=== PATIENT | male | born 1955 | race Caucasian/White ===

== ENCOUNTER 2020-04-17 15:05 | Inpatient (IN) | payer OTHER ==
[~2020-04-17] VITALS: Ht 185.4 cm; Wt 112.7 kg
[2020-04-17 16:47] VITALS: BP 131/85
--- NOTE | 2020-04-17 16:55 | NUR ---
ASSUMED CARE OF PT APPROX 1645, PT IS A&0X4, AMB STEADY. HR IN 40S, SPEAKS OF CP AFTER EATING/DRINKING. PT SPEAKING WITH PHYSICIAN. STARTING ON ADMISSION AND MONITORING. SPOUSE ACCOMPANIED, WANTS TO STAY SINCE THEY LIVE SO FAR AWAY. WILL ASK DOCTOR IF HOSPITAL CAN MAKE AN EXCEPTION. GAVE PT DEMO OF CALL LIGHT AND TO CALL FOR ANY NEEDS. WANTS A SNACK. WILL AWAIT ORDERS. SEE SEPARATE INTERVENTIONS FOR ASSESSMENTS. PT ALSO HAS LARGE HIATAL HERNIA AND TAKES GI MEDICATION. NO CHEST PAIN AT THIS TIME
[2020-04-17 18:00] LABS: HEMATOCRIT 48.8 % (42.0-52.0); HEMOGLOBIN 17.1 gm/dL (14.0-18.0); MCH 30.7 pg (26.0-34.0); MCV 87.6 fL (80.0-100.0); RBC 5.58 mil/uL (4.50-6.00); RDW 13.2 % (10.5-14.5); WBC 9.8 thou/uL (4.0-11.0)
[2020-04-17 18:18] LABS: ALBUMIN 3.8 g/dL (3.4-5.0); CALCIUM 8.8 mg/dL (8.5-10.1); MAGNESIUM 1.8 mg/dL (1.8-2.4); PHOSPHORUS 3.3 mg/dL (2.5-4.9); POTASSIUM 4.3 mmol/L (3.5-5.1); TOTAL PROTEIN 7.2 g/dL (6.4-8.2)
[2020-04-17 18:23] LABS: TROPONIN-I 1.52 ng/mL (<0.06)
[2020-04-17 18:40] LABS: TSH 2.493 uIU/mL (0.358-3.740)
[2020-04-17] MEDS ORDERED: COZAAR 25 MG TA25 M1 PO (19:28)
[2020-04-17] MEDS ORDERED: OMEPRAZOLE40 MG PO (19:29)
--- NOTE | 2020-04-17 19:31 | NUR ---
PT TAKES ONE MORE MEDICATION; SPOUSE LOOKING IT UP AND WILL TELL WHICHEVER NURSE IS ON DUTY.
[2020-04-17 19:50] VITALS: BP 125/69
[2020-04-17 20:29] LABS: INR 1.1; PROTIME 10.8 Seconds (9.3-11.4)
[2020-04-18] VITALS: BP 124/68
[2020-04-18 04:10] LABS: HEMATOCRIT 46.7 % (42.0-52.0); HEMOGLOBIN 15.7 gm/dL (14.0-18.0); MCH 29.7 pg (26.0-34.0); MCHC 33.6 g/dL (28.0-37.0); MCV 88.4 fL (80.0-100.0); RBC 5.28 mil/uL (4.50-6.00); RDW 13.5 % (10.5-14.5); WBC 8.4 thou/uL (4.0-11.0)
[2020-04-18 04:13] LABS: CALCIUM 8.1 mg/dL (8.5-10.1); MAGNESIUM 1.9 mg/dL (1.8-2.4)
[2020-04-18 04:17] LABS: CHOLESTEROL 184 mg/dL (<200); HDL CHOLESTEROL 37 mg/dL (>40); LDL CHOLESTEROL 112 mg/dL (<100); TRIGLYCERIDE 176 mg/dL (<150); VLDL 35 mg/dL (<40)
[2020-04-18 04:26] LABS: SERUM ASSESSMENT Clear
[2020-04-18 04:30] VITALS: BP 132/65
[2020-04-18 07:35] VITALS: BP 134/83
--- NOTE | 2020-04-18 07:53 | NUR ---
ASSUE CARE 1900. PT/VITALS STABLE. MILD INTERMITTENT CHEST PAIN. STEADY GAIT. NO DISTRESS NTOED. SR/SB ON MONITOR. HEPARIN BOLUS AND DRIP INTIATED PER CARDIOLOGY PROTOCOL. ASSESSMETN CHARTED. PROGRESSING WELL WITH POC. CARDIOLOGY TO SEE PT TODAY FOR FURTHER POC. WILL CONTINUE TO MONITOR AND FOLLOW WITH POC
[2020-04-18 11:11] VITALS: BP 108/73
[2020-04-18 15:20] VITALS: BP 134/67
--- NOTE | 2020-04-18 18:41 | NUR ---
ASSUMED CARE OF PT SHIFT CHANGE. ASSESSMENTS CHARTED. MEDS GIVEN PER OCT. PT A&OX4, NO C/O CHEST PAIN OR DISTRESS. PLAN FOR CATH IN THE MORNING. NPO AFTER MIDNIGHT. WILL CONTINUE TO MONITOR AND FOLLOW POC.
[2020-04-18 20:45] VITALS: BP 118/66
[2020-04-19] VITALS (11 sets, daily range): BP systolic 121–164; BP diastolic 66–92
[2020-04-19 03:55] LABS: CALCIUM 8.1 mg/dL (8.5-10.1); MAGNESIUM 1.9 mg/dL (1.8-2.4)
[2020-04-19 06:07] LABS: HEMATOCRIT 44.5 % (42.0-52.0); HEMOGLOBIN 15.4 gm/dL (14.0-18.0); MCH 30.5 pg (26.0-34.0); MCHC 34.5 g/dL (28.0-37.0); MCV 88.5 fL (80.0-100.0); RBC 5.03 mil/uL (4.50-6.00); RDW 13.3 % (10.5-14.5); WBC 7.3 thou/uL (4.0-11.0)
--- NOTE | 2020-04-19 07:58 | NUR ---
NPO SINCE MIDNIGHT FOR A POSSIBLE CATH TODAY.ON HEPARIN GTT;TITRATED.DENIES PAIN AND SOB.POC CONTINUED.
--- NOTE | 2020-04-19 08:53 | EKG ---
[facility] [place] [address] [address] ELECTROCARDIOGRAM REPORT Name: MARITZA ALLAN Room #: 212- ADM IN M.R.#: [id number] Admission: 04/17/20 Attend Phys: Danis Rush MD Discharge: Date of : 59 Report #: [id number] THIS REPORT FOR: cc: FAM - Family physician unknown FAM - Family physician unknown Mitch Cunha MD [facility] THIS REPORT FOR: //name// [facility] Test Date: 2020-04-17 Test Time: 21:30:50 Pat Name: MARITZA ALLAN Department: Room: 212 Gender: M Director Of Media: MARBELLA : 1955 Requested By: Danis Rush Order Number: [id number] MD: Mitch Cunha Measurements Intervals [place] Rate: 51 P: -28 WY: 145 QRS: -12 QRSD: 89 T: 25 QT: 435 QTc: 401 Interpretive Statements Sinus bradycardia Otherwise normal tracing No previous ECG available for comparison Electronically Signed On 04-19-2020 8:53:11 CDT by Mitch Cunha [email or web address] <ELECTRONICALLY SIGNED> By: Mitch Cunha MD, FAC 04/19/20 0853 29 29 Mitch Cunha MD, [facility] /EPI
--- NOTE | 2020-04-19 11:33 | 2DMMODE ---
[facility] [address] [place] [address] 2 D/M-MODE ECHOCARDIOGRAM Name: MARITZA ALLAN Room #: 212-P ADM IN M.R.#: [id number] Admission: 04/17/20 Attend Phys: Danis Rush MD Discharge: Date of : 59 Report #: [id number] THIS REPORT FOR: cc: FAM - Family physician unknown FAM - Family physician unknown Pradeep Sun MD ~ APPROVED REPORT Study performed: 04/19/2020 09:40:36 EXAM: Comprehensive 2D, Doppler, and color-flow Echocardiogram Patient Location: Bedside Room #: 212 Status: routine BSA: 2.34 HR: 53 bpm BP: 154/90 mmHg Rhythm: Bradycardia Other Information Study Quality: Good Indications Diabetes Non STEMI Elevated Troponin Chest Pain Hypertension/HDD 2D Dimensions RVDd: 40.27 mm IVSd: 11.72 (7-11mm) LVOT Diam: 21.39 (18-24mm) LVDd: 47.80 mm PWd: 12.66 (7-11mm) Ascending Ao: 29.76 (22-36mm) LVDs: 37.18 (25-40mm) Aortic Root: 30.85 mm IVC: 13.00 mm Volumes Left Atrial Volume (Systole) Single Plane 4CH: 47.38 mL LA ESV Index: 23.00 mL/m2 Aortic Valve AoV Peak Dell.: 1.41 m/s [facility] [email or web address] [address] 2 D/M-MODE ECHOCARDIOGRAM Name: MARITZA ALLAN Room #: 212-P [facility] IN ..#: [id number] Admission: 04/17/20 Attend Phys: Danis Rush, Discharge: Date of : 59 Report #: [id number] Peak Gr.: 7.95 mmHg LVOT Max P.77 mmHg LVOT Max V: 0.97 m/s HENRI Vmax: 2.47 cm2 Mitral Valve E/A Ratio: 1.2 MV Decel. Time: 185.66 ms MV E Max Dell.: 0.95 m/s MV A Dell.: 0.82 m/s MV PHT: 53.84 ms IVRT: 96.89 ms Pulmonary Valve PV Peak Dell.: 0.93 m/s PV Peak Gr.: 3.44 mmHg Pulmonary Vein P Vein S: 0.55 m/s P Vein A: 0.23 m/s P Vein D: 0.32 m/s P Vein A Dur.: 106.1 msec P Vein S/D Ratio: 1.72 Tricuspid Valve TR Peak Dell.: 2.50 m/s TR Peak Gr.: 25.03 mmHg PA Pressure: 30.00 mmHg Left Ventricle The left ventricle is normal size. There is normal LV segmental wall motion. There is normal left ventricular wall thickness. The left ventricular systolic function is normal. The left ventricular ejection fraction is within the normal range. LVEF is 50-55%. The left ventricular diastolic function is normal. Right Ventricle The right ventricle is normal size. The right ventricular systolic function is normal. Atria The left atrium size is normal. The right atrium size is normal. Aortic Valve The aortic valve is normal in structure. No aortic regurgitation is present. There is no aortic valvular stenosis. Mitral Valve The mitral valve is normal in structure. Trace to mild mitral [facility] [email or web address] [address] 2 D/M-MODE ECHOCARDIOGRAM Name: ALLANMARITZA Zunilda Room #: 212-P [facility] IN ..#: [id number] Admission: 04/17/20 Attend Phys: Danis Rush, Discharge: Date of : 59 Report #: [id number] regurgitation. No evidence of mitral valve stenosis. Tricuspid Valve The tricuspid valve is normal in structure. There is trace to mild tricuspid regurgitation. Estimated PAP 30 mmHg. There is mild pulmonary hypertension. Pulmonic Valve The pulmonary valve is normal in structure. Trace pulmonic regurgitation. Great Vessels The aortic root is normal in size. IVC is normal in size and collapses >50% with inspiration. Pericardium There is no pericardial effusion. <Conclusion> The left ventricle is normal size. LVEF is 50-55%. The aortic valve is normal in structure. The mitral valve is normal in structure. Trace to mild mitral regurgitation. The tricuspid valve is normal in structure. There is trace to mild tricuspid regurgitation. Estimated PAP 30 mmHg. There is mild pulmonary hypertension. The pulmonary valve is normal in structure. Trace pulmonic regurgitation. There is no pericardial effusion. <ELECTRONICALLY SIGNED> By: Pradeep Sun MD 04/19/20 1133 1133 1133 Pradeep Sun MD /INF
--- NOTE | 2020-04-19 13:07 | NUR ---
MET WITH PT AND SPOUSE THIS AM AND INFORMED [employer] CONNECT PLAN IS OON WITH NO OON BENEFITS. PROVIDED IN [facility], [facility]. INFORMED PT AND SPOUSE WORKING WITH PT'S INSURANCE TO SEE IF [employer] WILL APPROVE DAYS 04/17/20 THRU 04/19/20. OBTAINED SPOUSE'S CELL NUMBER FOR FOLLOW UP. 2N GEOMORPHOLOGY TEACHER AND CM DIRECTOR UPDATED.
[2020-04-19 14:38] LABS: BASOPHILS 0.6 % (0.0-2.0); EOSINOPHILS 1.7 % (0.0-3.0); HEMATOCRIT 45.8 % (42.0-52.0); HEMOGLOBIN 15.3 gm/dL (14.0-18.0); LYMPHOCYTES 21.6 % (24.0-44.0); MCH 29.6 pg (26.0-34.0); MCHC 33.3 g/dL (28.0-37.0); MCV 88.7 fL (80.0-100.0); MONOCYTES 3.2 % (1.0-8.0); PLATELET COUNT 233 thou/uL (150-400); POLYS 72.9 % (36.0-66.0); RBC 5.16 mil/uL (4.50-6.00); RDW 13.3 % (10.5-14.5); WBC 6.9 thou/uL (4.0-11.0)
[2020-04-19 14:48] LABS: CALCIUM 8.2 mg/dL (8.5-10.1); CREATININE 1.1 mg/dL (0.7-1.3); POTASSIUM 3.6 mmol/L (3.5-5.1)
[2020-04-19 14:52] LABS: INR 1.1; PROTIME 10.8 Seconds (9.3-11.4)
[2020-04-19 14:53] LABS: APTT 28.7 Seconds (24.5-32.8)
[2020-04-19 14:55] LABS: ALBUMIN 3.2 g/dL (3.4-5.0); TOTAL BILIRUBIN 0.3 mg/dL (0.2-1.0); TOTAL PROTEIN 6.3 g/dL (6.4-8.2)
--- NOTE | 2020-04-19 19:25 | NUR ---
ASSUMED CARE PT SHIFT CHANGE. ASSESSMENTS CHARTED. MEDS GIVEN PER OCT. PT A&OX4, NO C/O PAIN OR DISTRESS. CATH PROCEDURE COMPLETE WITH NO INTERVENTIONS. CABG SCHEDULE FOR SUNDAY. R GROIN SITE CDI, WITH NO BRUISING OR HEMATOMA. HEPARIN DRIP CONTINUES AT 13.32. WILL CONTINUE TO MONITOR AND FOLLOW POC.
[2020-04-19 23:03] LABS: URINE BILIRUBIN NEGATIVE (Negative); URINE BLOOD NEGATIVE (Negative); URINE CLARITY CLEAR; URINE COLOR YELLOW; URINE GLUCOSE-RANDOM* NEGATIVE (Negative); URINE KETONES NEGATIVE (Negative); URINE LEUKOCYTES-REFLEX NEGATIVE (Negative); URINE NITRITE-REFLEX NEGATIVE (Negative); URINE PROTEIN (DIPSTICK) NEGATIVE (Negative); URINE SPECIFIC GRAVITY 1.015 (1.005-1.035); URINE UROBILINOGEN 0.2 E.U./dl (0.2-1.0)
[2020-04-20 04:45] VITALS: BP 140/80
[2020-04-20 05:39] LABS: HEMATOCRIT 43.7 % (42.0-52.0); HEMOGLOBIN 14.5 gm/dL (14.0-18.0); MCH 29.4 pg (26.0-34.0); MCHC 33.2 g/dL (28.0-37.0); MCV 88.4 fL (80.0-100.0); RBC 4.94 mil/uL (4.50-6.00); RDW 13.1 % (10.5-14.5); WBC 7.8 thou/uL (4.0-11.0)
[2020-04-20 06:12] LABS: CALCIUM 8.4 mg/dL (8.5-10.1); CREATININE 0.9 mg/dL (0.7-1.3); MAGNESIUM 1.8 mg/dL (1.8-2.4)
--- NOTE | 2020-04-20 06:29 | NUR ---
ON HEPARIN GTT TITRATED PER PROTOCOL.UP ADLIB TO THE BATHROOM.DENIES NEEDS AT THIS TIME.POC CONTINUED.
[2020-04-20 07:09] LABS: GLYCOHEMOGLOBIN (HGB A1C) 5.4 % (4.8-5.6)
[2020-04-20 08:00] VITALS: BP 152/89
--- NOTE | 2020-04-20 08:28 | EKG ---
[facility] [place] [address] [place] [address] ELECTROCARDIOGRAM REPORT Name: MARITZA ALLAN Room #: 212-P ADM IN M.R.#: [id number] Admission: 04/17/20 Attend Phys: Danis Rush MD Discharge: Date of : 59 Report #: [id number] THIS REPORT FOR: cc: FAM - Family physician unknown FAM - Family physician unknown Mitch Cunha MD [facility] THIS REPORT FOR: //name// [facility] Test Date: 2020-04-20 Test Time: 07:18:14 Pat Name: MARITZA ALLAN Department: Room: 212 Gender: M Return Agent Airport: [place] : 1955 Requested By: Nayan Wise Order Number: [id number] MD: Mitch Cunha Measurements Intervals [place] Rate: 56 P: 37 ME: 171 QRS: -14 QRSD: 91 T: 14 QT: 425 QTc: 411 Interpretive Statements Sinus bradycardia Otherwise no significant abnormality Compared to ECG 04/17/2020 21:30:50 No significant change was found Electronically Signed On 04-20-2020 8:28:13 CDT by Mitch Cunha [email or web address] <ELECTRONICALLY SIGNED> By: Mitch Cunha MD, [facility] 04/20/20 0828 7 7 Mitch Cunha MD, [facility] /EPI
--- NOTE | 2020-04-20 12:23 | NUR ---
Spoke with patient discussed [facility], [facility], and [facility] network[facility], [facility] is reviewing, [facility] has no CTS.
[2020-04-20 17:00] VITALS: BP 128/76
[2020-04-20 17:56] VITALS: BP 152/89
--- NOTE | 2020-04-20 19:21 | NUR ---
ASSUMED CARE OF PT AT SHIFT CHANGE. ASSESSMENTS CHARTED. MEDS GIVEN PER OCT. PT A&OX4, NO C/O PAIN. HEPARIN DRIP CONTINUES AT 11. PT IS IN THERAPEUTIC RANGE. CABG STILL PLANNED FOR SUNDAY. WILL CONTINUE TO MONITOR AND FOLLOW POC.
[2020-04-20 20:03] VITALS: BP 126/75
--- NOTE | 2020-04-21 03:35 | NUR ---
PATIENT IS ADVANCING SLOWLY IN HIS CARE PLAN. VITAL SIGNS STABLE WITH PATIENT HAVING NO COMPLAINTS OF CHEST PAIN OR NAUSEA. FULLY ORIENTED, PATIENT IS ABLE TO CALL APPROPRIATELY FOR NEEDS AND PARTICIPATE IN CARE. HEPARIN GTT PER PROTOCOL. UP AD CINDI THROUGHOUT SHIFT INCIDENT FREE. PATIENT IS STRONG AND BALANCED WHEN AMBULATING. PATIENT HAS A GREAT DEAL OF ANXIETY CONCERNING QUESTIONS AND UNCERTAINTY ABOUT UPCOMING CARDIAC PROCEDURE. HE HAS STATED THAT HE WOULD "FEEL BETTER" JUST KNOWING IT WAS GOING TO BE DEFINITIVELY DONE AND WHERE IT WOULD HAPPEN. CONTINUE PLAN OF CARE.
[2020-04-21 04:01] VITALS: BP 108/60
[2020-04-21 05:43] LABS: HEMATOCRIT 43.9 % (42.0-52.0); HEMOGLOBIN 14.9 gm/dL (14.0-18.0); MCH 30.2 pg (26.0-34.0); MCHC 33.9 g/dL (28.0-37.0); RBC 4.93 mil/uL (4.50-6.00); RDW 13.3 % (10.5-14.5); WBC 7.2 thou/uL (4.0-11.0)
[2020-04-21 05:54] LABS: CALCIUM 8.6 mg/dL (8.5-10.1); CREATININE 0.8 mg/dL (0.7-1.3); MAGNESIUM 1.7 mg/dL (1.8-2.4); POTASSIUM 4.1 mmol/L (3.5-5.1)
[2020-04-21 08:29] VITALS: BP 137/77
[2020-04-21 11:07] VITALS: BP 118/71
[2020-04-21 11:11] VITALS: BP 95/64
--- NOTE | 2020-04-21 12:00 | NUR ---
ORDERS RECEIVED FOR PT EVAL AND TREAT. Pt LIVES WITH IN BRAND NEW RV THAT IS CURRENTLY PARKED IN FRONT OF THEIR HOME WHICH IS BEING RENOVATED. HAS 3 WIDE ANNA RV WITH UNILAT HR. INDEP WITH ADLs. NO GAIT AIDS. Pt HAS BEEN UP AD CINDI WITHOUT DIFFICULTIES PER Pt AND RN. NO MOBILITY ISSUES AT THIS TIME. Pt DENIED CURRENT NEED FOR PT. ACUTE PT TO SIGN OFF. Pt POTENTIALLY STAYING HERE FOR CABG PROCEDURE AFTER WHICH WOULD NEED NEW ORDERS FOR PT.
[2020-04-21 15:39] VITALS: BP 127/87
[2020-04-21] MEDS ORDERED: ASPIRIN325 PO (17:13)
[2020-04-21] MEDS ORDERED: LIPITOR40 MG PO (17:13)
[2020-04-21] MEDS ORDERED: COZAAR 50 MG TA50 M1 PO (17:13)
--- NOTE | 2020-04-21 17:34 | NUR ---
Began process again for transfer to in [facility]. [facility] at capacity. Sp with [facility] transfer center. [facility] where CTS avail. Transfer center requested casemgt inquire if patient agreeable to [facility] as may expedite process. Initially yes, however sp with family who reports bad experience and preference [facility]. Prev noted [facility] not CTS avail and today [facility] at capacity. calling insurance to inquire if able to have procedure here. Ins speaking with hospital UR. Question of non contracted benefit. During discussion bed aval at [facility]. Accepting phys Dr Aaron Herrera hospitalist. CTS phys Dr Wale Kaur. Patient made aware likely CTS sx Sunday. Emtalla completed and signed by patient. [facility] arranged for anytime but may be later this evening. at bedside. RN called report.
--- NOTE | 2020-04-21 18:16 | NUR ---
ASSUMED CARE OF PT AT SHIFT CHANGE. ASSESSMENTS CHARTED. MEDS GIVEN PER OCT. PT A&OX4, NO C/O PAIN DURING SHIFT. HEP DRIP CONTINUED THROUGHOUT SHIFT WITH NO CHANGE. PT TRANSFERRED TO [facility] FOR CABB. TRANSPORTED BY [facility] AT 1815.
[2020-04-21 18:20] VITALS: BP 127/87
--- NOTE | 2020-04-22 11:50 | CATHLAB ---
[facility] [address] [place] [address] INVASIVE PROCEDURE REPORT Name: MARITZA ALLAN Room #: 212-P [facility] IN M.R.#: [id number] Admission: 04/17/20 Attend Phys: Danis Rush MD Discharge: 04/21/20 Date of : 59 Report #: [id number] THIS REPORT FOR: cc: FAM - Family physician unknown FAM - Family physician unknown Pradeep Sun MD ~ APPROVED REPORT Study performed: 04/19/2020 11:24:29 Patient Details The patient is a 64 year-old male Event Personnel Pradeep Sun Composite Boat Builder, Jack Falcon RN RN, Nay Andino RN RN, Janny Jose RTR Scrub, Angelica Pienda Scrub, Cindi Delgadillo RT(R)() Monitor Procedures Performed Art Access - R femoral artery* Left Heart Cath w/or w/o Coronaries [id number] [facility] Hemostasis w/ Mynx 18539 Initial Mod Sed Same Phys/QHP Gr5y 149275, supervision of conscious sedation Indication Non-STEMI , Chest pain Procedure Narrative The Right Groin^ was infiltrated with 1% Lidocaine subcutaneous anesthesia. A PINNACLE 6FR Sheath #[id number] sheath was inserted into the RFA 6F^. Coronary angiography was performed using coronary diagnostic catheters. The right coronary system was accessed and visualized with a JR4 catheter. The left coronary system was accessed and visualized with a JL4 catheter. The left ventricle was accessed and visualized with a JR4 catheter. The patient tolerated the procedure well and there were no complications associated with the procedure. There was no hematoma. Intraoperative Conscious Sedation Versed mg Fluoro Time: 1.60 minutes Dose: DAP 5048.40 cGycm2 Contrast Type and Amount: Omnipaque 60 ml [facility] [place] [address] INVASIVE PROCEDURE REPORT Name: JERRELLMARITZA Zunilda Room #: 212-P [facility]#: [id number] Admission: 04/17/20 Attend Phys: Danis Rush, Discharge: 04/21/20 Date of : 59 Report #: [id number] Coronary Angiography The patient's coronary anatomy is right dominant. Diagnostic Cath Left Main Normal origin moderate to large caliber bifurcates left anterior descending left circumflex. Free of significant high-grade lesions LAD Moderate caliber type III vessel which courses in the anterior interventricular sulcus. His proximal mid portion there is a eccentric lesion that appears to be between 60 and 70% depending on the views. There is a poststenotic dilatation and a less significant narrowing beyond this dilatation. The vessel continues giving rise to septal and diagonal branches towards the apex terminates in the posterior inferior aspect of the left ventricle free of high-grade disease Diagonal 1 Moderate caliber bifurcating vessel has an eccentric proximal lesion of 70%. The vessel then continues bifurcates into smaller branches along the anterolateral aspect of the heart without significant high-grade lesions present Circumflex Moderate to large caliber vessel of normal origin courses giving rise to a small insignificant caliber first marginal branch. This first marginal branches without high-grade lesion. The vessel itself and continues on in the AV groove where there is a large marginal branch arising with a high-grade eccentric 90 to 95% lesion noted. There is evidence of some haziness consistent with mild thrombus. This vessel reconstitutes and terminates as a bifurcating lateral wall marginal with luminal irregularities in its course. The circumflex proper then continues as a small caliber vessel posteriorly. OM1 Moderate to large caliber vessel with high-grade proximal lesions of 99 5%. It then bifurcates with luminal irregularities in its bifurcating branch Right Coronary Small to moderate caliber vessel normal origin. Proximally there is a high-grade lesion with homocollaterals noted. This appears to be recannulated chronic total occlusion but flow is limited. The continues in the AV groove posteriorly to the crux of the heart rate gives rise to a small caliber posterior descending artery free of high-grade disease beyond this initial lesion. At the acute margin there is a small RV branch free of high-grade disease R PDA Small caliber vessel coursing in the posterior interventricular sulcus free of high-grade lesion Left Ventriculography Left Ventriculography was not performed. Hemodynamics [facility] [address] [place] [address] INVASIVE PROCEDURE REPORT Name: MARITZA ALLAN Room #: 212-P [facility] IN M.R.#: [id number] Admission: 04/17/20 Attend Phys: Danis Rush, Discharge: 04/21/20 Date of : 59 Report #: [id number] The aortic pressure is 147/73 mmHg with a mean of 103 mmHg. The left ventricular pressure is 167/8 mmHg with a mean of mmHg. The left ventricular end diastolic pressure is 32 mmHg. Conclusion 1. Coronary artery disease severe multivessel consisting of a high-grade complex proximal LAD, proximal first marginal branch lesion and a proximal RCA appearing as a recannulated chronic total occlusion 2. Abnormal hemodynamics with mildly elevated low ventricular end-diastolic pressure Recommendations Cardiac Risk Reduction Program CABG <ELECTRONICALLY SIGNED> By: Pradeep Sun MD 04/22/20 1150 1150 1150 Pradeep Sun MD /INF
--- NOTE | 2020-04-22 15:47 | HC ---
[facility] [place] [address] [address] [place] [address] CONSULTATION Name: MARITZA ALLAN Room #: 212-P [facility] IN M.R.#: [id number] Admission: 04/17/20 Attend Phys: Danis Rush MD Discharge: 04/21/20 Date of : 59 Report #: [id number] THIS REPORT FOR: cc: [facility] - Family physician unknown ADOLFO - Family physician unknown Houston Long MD ~ CC: [facility] unknown Danis Rush DATE OF SERVICE: 04/19/2020 REASON FOR CONSULT: The patient is a 64-year-old seen for Dr. Sun. The patient was admitted on 04/17/2020 with unstable angina. The patient had elevated troponin. The patient states that he had a crushing chest pain associated with diaphoresis. No shortness of breath. The patient had a mild episode of this Sunday night, but it became severe Sunday morning and led to hospitalization. Cardiac catheterization today demonstrates severe 3-vessel disease including subtotal right coronary artery occlusion, 90% circumflex marginal and 90% LAD stenosis. PAST MEDICAL HISTORY: Significant for hypertension. The patient denies diabetes mellitus. The patient takes omeprazole for gastroesophageal reflux. MEDICATIONS: Also includes losartan 25 mg daily. ALLERGIES: The patient denies drug allergies. SOCIAL HISTORY: The patient is a current smoker. FAMILY HISTORY: has coronary artery disease and has had bypass surgery. REVIEW OF SYSTEMS: GENERAL: No fever. The patient does report a 50-pound weight loss since May using [employer]. EYES: No vision change. HEENT: No headache. No sore throat. RESPIRATORY: No shortness of breath, no cough. CARDIAC: As mentioned, unstable angina at rest. No palpitations. GASTROINTESTINAL: Has had reflux symptoms, but this may have been angina. Denies nausea, vomiting, or diarrhea. GENITOURINARY: No urgency, frequency, or blood. MUSCULOSKELETAL: Has had a left meniscus problem, but no other bone or joint complaints. NEUROLOGIC: No motor or sensory dysfunction. [facility] [address] [place] [address] CONSULTATION Name: JERRELLMARITZA Zunilda Room #: 212-[facility] IN ..#: [id number] Admission: 04/17/20 Attend Phys: Danis Rush MD Discharge: 04/21/20 Date of : 59 Report #: [id number] SKIN: No rash or infection. ENDOCRINE: No goiter, no tremor. HEMATOLOGIC: No bruisability or bleeding. PHYSICAL EXAMINATION: CONSTITUTIONAL: The patient is in bed, status post cardiac catheterization. VITAL SIGNS: Heart rate 55, respiratory rate 18, blood pressure 121/78, O2 sat 98% on room air, temperature 36.6. HEENT: No scleral icterus, no arcus. NECK: No mass, no bruit. CHEST: Clear to auscultation. HEART: Rhythm regular, no murmur. ABDOMEN: Somewhat protuberant. Soft. No mass, no tenderness. EXTREMITIES: No clubbing, cyanosis or edema. SKIN: No rash or infection. VASCULAR: No obvious saphenous vein problems. NEUROLOGIC: No motor or sensory dysfunction. MUSCULOSKELETAL: No bone or joint asymmetry or deformity. PSYCHIATRIC: Oriented x 3, appropriate, shows insight into problem. Other reports include cardiac echo that shows an ejection fraction in the 50-55% range with no significant valve dysfunction. I reviewed the cardiac catheterization findings with the patient and I have recommended the patient had coronary artery bypass surgery on this admission. Risks and details were discussed. Options and alternatives were reviewed. Risks include but are not limited to bleeding, infection, anesthesia risks, heart and lung problems, stroke and . Options and alternatives were reviewed. The patient understands all of this and wishes to proceed. We will try to arrange surgery for , but with the caveat that we have canceled cases recently for the COVID crisis. Thank you for the consult. <ELECTRONICALLY SIGNED> By: Houston Long MD 04/22/20 1547 1335 1522 Houston Long MD /nt
== END 2020-04-21 18:26 | disposition short-term general hospital (02) | DRG 280 ==
LOC: 2N 15:05
PROVIDERS: Physician Assistant; ADMIT Internal Medicine; ATTEND Internal Medicine
PROC: B2111ZZ Fluoroscopy of Multiple Coronary Arteries using Low Osmolar Contrast (ICD-10-PCS; principal; 2020-04-19)
PROC: 4A023N7 Measurement of Cardiac Sampling and Pressure, Left Heart, Percutaneous Approach (ICD-10-PCS; principal; 2020-04-19)
DX: I21.4 Non-ST elevation (NSTEMI) myocardial infarction (principal); I50.31 Acute diastolic (congestive) heart failure; E44.1 Mild protein-calorie malnutrition; I10 Essential (primary) hypertension; K21.9 Gastro-esophageal reflux disease without esophagitis; E11.9 Type 2 diabetes mellitus without complications; F17.210 Nicotine dependence, cigarettes, uncomplicated; E78.5 Hyperlipidemia, unspecified; I27.20 Pulmonary hypertension, unspecified; Z20.828 Contact with and (suspected) exposure to other viral communicable diseases; I25.110 Atherosclerotic heart disease of native coronary artery with unstable angina pectoris; Z68.32 Body mass index [BMI] 32.0-32.9, adult
CPT/HCPCS: 10081